=== PATIENT | female | born 1935 | race Caucasian/White ===

== ENCOUNTER 2022-10-17 13:47 | Inpatient (IN) | payer OTHER ==
[~2022-10-17] VITALS: Ht 157.5 cm; Wt 66.5 kg
[2022-10-17 14:00] VITALS: PULSE 118; RESP 30; O2SAT 99
[2022-10-17] MEDS ORDERED: MethylPREDNISolone SOD SUCC 125 MG/2 ML VIAL IVP ONE ×2 (14:00)
[2022-10-17] MEDS ORDERED: ALBUTEROL SULFATE 2.5 MG/0.5 ML 5 ML NEB SOLUTION NEB ONE (14:00)
[2022-10-17] MEDS ORDERED: NITROGLYCERIN 2% (1 GM=INCH) OINTMENT PACKET TP ONE (14:00)
[2022-10-17] MEDS ORDERED: ACETAMINOPHEN 1000 MG/ISO-OSM 100 ML IV ONE (14:00)
[2022-10-17] MEDS ORDERED: IPRATROPIUM BROMIDE 0.5 MG/2.5 ML NEB SOLUTION NEB ONE (14:00)
[2022-10-17] MEDS ORDERED: 0.9% SODIUM CHLORIDE 10 ML SYRINGE IVP PRN (14:00)
[2022-10-17 14:15] VITALS: PULSE 120; PULSE 126; RESP 24; RESP 29; O2SAT 95; O2SAT 99
[2022-10-17] MEDS ORDERED: PIPERACILLIN/TAZO 3.375 GM/D5W 50 ML IV ONE (14:15)
[2022-10-17] MEDS ORDERED: SODIUM CHLORIDE 0.9% 1,750 ML IV ONE (14:15)
[2022-10-17 14:17] LABS: HEMATOCRIT 29.9 % (36-46); HEMOGLOBIN 9.3 g/dL (12.0-16.0); MEAN CORPUSCULAR HEMOGLOBIN 25.6 pg (26.0-34.0); MEAN CORPUSCULAR HGB CONC 31.1 G/dL (31.0-37.0); MEAN CORPUSCULAR VOLUME 82 fL (80-100); PLATELET COUNT (AUTO) 246 K/uL (150-450); RED BLOOD CELL COUNT(AUTO) 3.64 MIL/uL (4.00-5.20); RED CELL DISTRIBUTION WIDTH 16.1 % (11.5-14.5)
[2022-10-17 14:28] LABS: ANION GAP 21 mmol/L (8-16); CALCIUM, TOTAL 8.8 mg/dL (8.8-10.5); CARBON DIOXIDE 17 mmol/L (22-29); CHLORIDE 94 mmol/L (98-107); CREATININE 2.54 mg/dL (0.60-1.30); GLOMERULAR FILTR. RATE CALC 18 mL/min (>60); GLUCOSE,RANDOM 190 mg/dL (70-110); SODIUM SERUM 132 mmol/L (136-145)
[2022-10-17 14:30] LABS: INR 1.2 (0.9-1.1); PROTHROMBIN TIME 12.2 SEC (9.4-11.6)
[2022-10-17 14:37] LABS: COVID AG,FIA SOURCE NASOPHARYNGEAL
[2022-10-17 14:43] LABS: ALANINE AMINOTRANSFERASE 20 U/L (12-78); ALBUMIN 3.1 g/dL (3.4-5.0); ALKALINE PHOSPHATASE 144 U/L (46-116); ASPARTATE AMINOTRANSFERASE 44 U/L (15-37); BILIRUBIN,TOTAL 0.7 mg/dL (0.1-1.0); CREATINE KINASE, TOTAL ONLY 42 U/L (26-192); TOTAL PROTEIN, SERUM 7.1 g/dL (6.4-8.2)
[2022-10-17] MEDS ORDERED: SODIUM CHLORIDE 0.9% 1,200 ML IV ONE (14:45)
[2022-10-17 14:52] LABS: BAND NEUTROPHILS % (MANUAL) 70 % (0-5); LYMPHOCYTES % (MANUAL) 16 % (22-44); MONOCYTES % (MANUAL) 1 % (2-9); SEGMENTED NEUTROPHILS % 13 % (40-70)
[2022-10-17 15:00] LABS: INFLUENZA TYPE A NEGATIVE FOR TYPE A (NEGATIVE); INFLUENZA TYPE B NEGATIVE FOR TYPE B (NEGATIVE)
[2022-10-17 15:25] VITALS: PULSE 100; RESP 20; O2SAT 100
[2022-10-17 16:12] LABS: ABG BASE EXCESS -11.4 mmol/L (-2.0-3.0); ABG CARBOXYHEMOGLOBIN 0.2 % (0.0-1.5); ABG HCO3 16.3 mmol/L (22.0-26.0); ABG METHEMOGLOBIN 0.6 % (0.0-1.5); ABG OXYGEN CONTENT 14.1 mL/dL (15.0-23.0); ABG OXYGEN SATURATION 99.4 % (95.0-98.0); ABG OXYHEMOGLOBIN 98.6 % (94.0-100.0); ABG PCO2 33 mmHg (35-45); ABG PH 7.285 (7.35-7.450); ABG TOTAL HEMOGLOBIN 9.6 G/dL (12.0-18.0); PO2, ARTERIAL BG 305.2 mmHg (71.0-79.0); SOURCE, BLOOD GAS ARTERIAL
[2022-10-17 16:13] LABS: ABG A-A DIFF O2 368.5 mmHg (10-20.0); O2 DEVICE,BLOOD GAS BIPAP (ROOM AIR); SITE, BLOOD GAS RT RADIAL
[2022-10-17 16:14] LABS: SPONTANEOUS VT, BG 526 ml
[2022-10-17 17:00] VITALS: PULSE 96; RESP 24; O2SAT 99
[2022-10-17] MEDS ORDERED: VANCOMYCIN 1GM/WATER(PEG/NADA) 200 ML IV ONE (17:45)
[2022-10-17] MEDS ORDERED: ACETAMINOPHEN 325 MG TABLET PO PRN (18:15)
[2022-10-17] MEDS ORDERED: ONDANSETRON HCL 4 MG/2 ML VIAL IVP PRN (18:15)
[2022-10-17 19:00] VITALS: PULSE 77; RESP 20; O2SAT 100
[2022-10-17] MEDS: DOCUSATE SODIUM 100 MG CAPSULE PO SCH (20:54)
[2022-10-17] MEDS: PIPERACILLIN SODIUM/TAZOBACTAM 2.25 GM in DEXTROSE 5%-WATER 50 ML IV SCH (21:12)
[2022-10-17] MEDS: HEPARIN SODIUM,PORCINE 5,000 UNITS/ML VIAL SQ SCH (23:49)
[2022-10-18] VITALS: BP 112/51; PULSE 72; RESP 20; TEMP 98.6
[2022-10-18] MEDS: PIPERACILLIN SODIUM/TAZOBACTAM 2.25 GM in DEXTROSE 5%-WATER 50 ML IV SCH ×3 (02:21→16:15)
[2022-10-18 04:00] VITALS: BP 113/53; PULSE 68; RESP 20; TEMP 98.8
[2022-10-18 06:02] LABS: BASOPHILS % (AUTO) 0.1 % (0.0-2.0); EOSINOPHILS % (AUTO) 0.1 % (1.0-6.0); HEMOGLOBIN 8.1 g/dL (12.0-16.0); LYMPHOCYTES # (AUTO) 0.5 K/uL (1.0-4.8); LYMPHOCYTES % (AUTO) 4.5 % (22.0-44.0); MEAN CORPUSCULAR HEMOGLOBIN 25.8 pg (26.0-34.0); MEAN CORPUSCULAR HGB CONC 31.2 G/dL (31.0-37.0); MEAN CORPUSCULAR VOLUME 83 fL (80-100); MONOCYTES # (AUTO) 0.8 K/uL (0.1-1.0); MONOCYTES % (AUTO) 6.8 % (2.0-9.0); NEUTROPHILS # (AUTO) 10.6 K/uL (1.8-7.7); PLATELET COUNT (AUTO) 211 K/uL (150-450); RED BLOOD CELL COUNT(AUTO) 3.15 MIL/uL (4.00-5.20)
[2022-10-18 06:08] LABS: NEUTROPHILS % (AUTO) 88.5 % (40.0-70.0)
[2022-10-18 06:10] LABS: CALCIUM, TOTAL 7.7 mg/dL (8.8-10.5); CREATININE 2.05 mg/dL (0.60-1.30); POTASSIUM 3.7 mmol/L (3.5-5.1)
[2022-10-18 08:00] VITALS: BP 112/55; PULSE 64; RESP 18; TEMP 98.6
[2022-10-18] MEDS: HEPARIN SODIUM,PORCINE 5,000 UNITS/ML VIAL SQ SCH ×2 (08:00→16:00)
[2022-10-18] MEDS: FAMOTIDINE 20 MG TABLET PO SCH (08:49)
[2022-10-18] MEDS: DOCUSATE SODIUM 100 MG CAPSULE PO SCH ×2 (08:49→20:52)
[2022-10-18 11:10] LABS: MAGNESIUM 1.9 mg/dL (1.80-2.40)
[2022-10-18 12:00] VITALS: BP 107/51; PULSE 66; RESP 18; TEMP 98.5
[2022-10-18] MEDS: FUROSEMIDE 20 MG/2 ML VIAL IVP SCH (13:03)
[2022-10-18 16:00] VITALS: BP 118/58; PULSE 77; RESP 20; TEMP 98.4
[2022-10-18 20:00] VITALS: BP 120/54; PULSE 72; RESP 18; TEMP 98.7
[2022-10-19] VITALS: BP 154/71; PULSE 77; RESP 22; TEMP 98.8
[2022-10-19] MEDS: HEPARIN SODIUM,PORCINE 5,000 UNITS/ML VIAL SQ SCH ×3 (00:10→17:21)
[2022-10-19] MEDS: PIPERACILLIN SODIUM/TAZOBACTAM 2.25 GM in DEXTROSE 5%-WATER 50 ML IV SCH ×3 (00:10→17:21)
[2022-10-19 04:00] VITALS: BP 132/88; PULSE 83; RESP 18; TEMP 98.5
[2022-10-19 08:00] VITALS: BP 141/70; PULSE 77; RESP 19; TEMP 98.8
[2022-10-19] MEDS ORDERED: VANCOMYCIN HCL 750 MG in DEXTROSE 5%-WATER 250 ML IV SCH (08:00)
[2022-10-19] MEDS: VANCOMYCIN 1GM/WATER(PEG/NADA) 200 ML IV SCH (08:03)
[2022-10-19] MEDS: FAMOTIDINE 20 MG TABLET PO SCH (08:04)
[2022-10-19] MEDS: DOCUSATE SODIUM 100 MG CAPSULE PO SCH ×2 (08:04→20:34)
[2022-10-19] MEDS: FUROSEMIDE 20 MG/2 ML VIAL IVP SCH (08:04)
[2022-10-19 08:55] LABS: CALCIUM, TOTAL 8.2 mg/dL (8.8-10.5); CREATININE 1.7 mg/dL (0.60-1.30); POTASSIUM 4.5 mmol/L (3.5-5.1)
[2022-10-19 12:00] VITALS: BP 136/76; PULSE 78; RESP 25; TEMP 98.8
[2022-10-19] MEDS: HYDROCODONE/ACETAMINOPHEN 5-325 MG TABLET PO PRN ×2 (12:56→20:34)
[2022-10-19 16:00] VITALS: BP 126/63; PULSE 75; RESP 17; TEMP 98.7
[2022-10-19 20:00] VITALS: BP 113/61; PULSE 88; RESP 18; TEMP 98.8
[2022-10-19] MEDS: DOXYCYCLINE HYCLATE 100 MG TABLET PO SCH (20:34)
[2022-10-19] MEDS: ETHYL ALCOHOL 62% ANTISEPTIC NASAL SANITIZER 0.6 ML AMPUL NASAL SCH (20:34)
[2022-10-20] VITALS: BP 133/61; PULSE 93; RESP 16; TEMP 98.2
[2022-10-20] MEDS ORDERED: SODIUM CHLORIDE 0.9% 250 ML IV ONE (00:21)
[2022-10-20] MEDS: HEPARIN SODIUM,PORCINE 5,000 UNITS/ML VIAL SQ SCH ×3 (00:27→16:45)
[2022-10-20] MEDS: PIPERACILLIN SODIUM/TAZOBACTAM 2.25 GM in DEXTROSE 5%-WATER 50 ML IV SCH ×3 (00:27→16:45)
[2022-10-20 04:00] VITALS: BP 137/66; PULSE 94; RESP 20; TEMP 97.6
[2022-10-20 06:42] LABS: BASOPHILS % (AUTO) 0.3 % (0.0-2.0); EOSINOPHILS % (AUTO) 0.2 % (1.0-6.0); HEMATOCRIT 31.4 % (36-46); HEMOGLOBIN 9.9 g/dL (12.0-16.0); LYMPHOCYTES # (AUTO) 2.3 K/uL (1.0-4.8); LYMPHOCYTES % (AUTO) 8.7 % (22.0-44.0); MEAN CORPUSCULAR HEMOGLOBIN 25.7 pg (26.0-34.0); MEAN CORPUSCULAR HGB CONC 31.7 G/dL (31.0-37.0); MEAN CORPUSCULAR VOLUME 81 fL (80-100); MONOCYTES # (AUTO) 1.5 K/uL (0.1-1.0); MONOCYTES % (AUTO) 5.7 % (2.0-9.0); NEUTROPHILS # (AUTO) 22.1 K/uL (1.8-7.7); NEUTROPHILS % (AUTO) 85.1 % (40.0-70.0); PLATELET COUNT (AUTO) 369 K/uL (150-450); RED BLOOD CELL COUNT(AUTO) 3.87 MIL/uL (4.00-5.20); RED CELL DISTRIBUTION WIDTH 16.4 % (11.5-14.5)
[2022-10-20 06:59] LABS: ANION GAP 13 mmol/L (8-16); CARBON DIOXIDE 21 mmol/L (22-29); CHLORIDE 99 mmol/L (98-107); CREATININE 1.96 mg/dL (0.60-1.30); GLOMERULAR FILTR. RATE CALC 24 mL/min (>60); GLUCOSE,RANDOM 96 mg/dL (70-110); POTASSIUM 4.3 mmol/L (3.5-5.1); SODIUM SERUM 133 mmol/L (136-145)
[2022-10-20 07:34] VITALS: BP 149/84; PULSE 99; RESP 16; TEMP 99.2
[2022-10-20] MEDS: FUROSEMIDE 20 MG/2 ML VIAL IVP SCH ×2 (09:00→09:39)
[2022-10-20] MEDS: ETHYL ALCOHOL 62% ANTISEPTIC NASAL SANITIZER 0.6 ML AMPUL NASAL SCH ×2 (09:39→20:43)
[2022-10-20] MEDS: DOXYCYCLINE HYCLATE 100 MG TABLET PO SCH ×2 (09:39→20:43)
[2022-10-20] MEDS: DOCUSATE SODIUM 100 MG CAPSULE PO SCH ×2 (09:39→20:43)
[2022-10-20] MEDS: FAMOTIDINE 20 MG TABLET PO SCH (09:39)
[2022-10-20 11:05] LABS: APPEARANCE,URINE CLEAR (CLEAR); BILIRUBIN,URINE NEGATIVE (NEGATIVE); GLUCOSE, URINE (UA) NEGATIVE (NEGATIVE); KETONES,URINE NEGATIVE (NEGATIVE); LEUKOCYTE ESTERASE ,URINE LARGE (NEGATIVE); NITRATE,URINE NEGATIVE (NEGATIVE); OCCULT BLOOD,URINE NEGATIVE (NEGATIVE); PH,URINE 5.5 (5.0-8.0); PROTEIN,URINE TRACE mg/dL (NEGATIVE); SPECIFIC GRAVITIY, URINE 1.014 (1.003-1.030); UROBILINOGEN,URINE <=1.0 mg/dL (<=1.0)
[2022-10-20 11:15] LABS: BACTERIA,URINE None Seen /HPF (None Seen); RBC,URINE None Seen /HPF (0-2); SQUAMOUS EPITHELIAL CELL,UR Few /LPF (None Seen)
[2022-10-20 12:00] VITALS: BP 137/76; PULSE 107; RESP 18; TEMP 98.4
[2022-10-20] MEDS ORDERED: DEXTROSE 50%-WATER 25 GM/50 ML SYRINGE IVP PRN (13:00)
[2022-10-20 13:15] LABS: GLUCOMETER DEV NAME(LOC) 5N.2C
[2022-10-20] MEDS ORDERED: SODIUM PHOSPHATE,MONO-DIBASIC 133 ML ENEMA PR ONE (13:30)
[2022-10-20 16:56] VITALS: BP 122/53; PULSE 98; RESP 17; TEMP 99
[2022-10-20] MEDS: INSULIN LISPRO 100 UNITS/ML SQ PRN (17:33)
[2022-10-20 18:46] LABS: GLUCOMETER DEV NAME(LOC) 5N.2C
[2022-10-20 20:00] VITALS: BP 117/49; PULSE 93; RESP 16; TEMP 98
[2022-10-21] VITALS (8 sets, daily range): BP systolic 114–140; BP diastolic 46–65; PULSE 83–111; RESP 16–20; TEMP 98–98.4; O2SAT 96–100
[2022-10-21] MEDS: PIPERACILLIN SODIUM/TAZOBACTAM 2.25 GM in DEXTROSE 5%-WATER 50 ML IV SCH ×4 (00:07→22:11)
[2022-10-21] MEDS: HEPARIN SODIUM,PORCINE 5,000 UNITS/ML VIAL SQ SCH ×4 (00:07→23:44)
[2022-10-21 06:27] LABS: GLUCOMETER DEV NAME(LOC) 5S.2C
[2022-10-21 06:40] LABS: CALCIUM, TOTAL 8.9 mg/dL (8.8-10.5); CREATININE 1.49 mg/dL (0.60-1.30); VANCOMYCIN,RANDOM 12.9 mcg/mL (25.0-50.0)
[2022-10-21] MEDS: DOCUSATE SODIUM 100 MG CAPSULE PO SCH ×2 (09:00→20:40)
[2022-10-21] MEDS: DOXYCYCLINE HYCLATE 100 MG TABLET PO SCH ×2 (09:03→20:40)
[2022-10-21] MEDS: FAMOTIDINE 20 MG TABLET PO SCH (09:03)
[2022-10-21] MEDS: ETHYL ALCOHOL 62% ANTISEPTIC NASAL SANITIZER 0.6 ML AMPUL NASAL SCH ×2 (09:03→20:40)
[2022-10-21] MEDS: FUROSEMIDE 20 MG/2 ML VIAL IVP SCH (09:03)
[2022-10-21] MEDS: VANCOMYCIN 1GM/WATER(PEG/NADA) 200 ML IV SCH (09:04)
[2022-10-21 12:52] LABS: GLUCOMETER DEV NAME(LOC) 5N.2C
[2022-10-21 12:57] LABS: BASOPHILS % (AUTO) 1.2 % (0.0-2.0); EOSINOPHILS % (AUTO) 1.8 % (1.0-6.0); HEMOGLOBIN 8.6 g/dL (12.0-16.0); LYMPHOCYTES % (AUTO) 12.5 % (22.0-44.0); MEAN CORPUSCULAR HEMOGLOBIN 25.8 pg (26.0-34.0); MEAN CORPUSCULAR VOLUME 81 fL (80-100); MONOCYTES # (AUTO) 1.2 K/uL (0.1-1.0); MONOCYTES % (AUTO) 7.7 % (2.0-9.0); NEUTROPHILS % (AUTO) 76.8 % (40.0-70.0); PLATELET COUNT (AUTO) 289 K/uL (150-450); RED BLOOD CELL COUNT(AUTO) 3.35 MIL/uL (4.00-5.20); RED CELL DISTRIBUTION WIDTH 16.6 % (11.5-14.5)
[2022-10-21 12:59] LABS: GLUCOMETER DEV NAME(LOC) 5N.2C
[2022-10-21] MEDS: IPRATROPIUM BROMIDE 0.5 MG/2.5 ML NEB SOLUTION NEB PRN (16:52)
[2022-10-21] MEDS: ALBUTEROL SULFATE 2.5 MG/0.5 ML NEB SOLUTION NEB PRN (16:53)
[2022-10-21] MEDS: HYDROCODONE/ACETAMINOPHEN 5-325 MG TABLET PO PRN (17:21)
[2022-10-21] MEDS: BENZONATATE 100 MG CAPSULE PO SCH ×2 (17:21→23:44)
[2022-10-21] MEDS: INSULIN LISPRO 100 UNITS/ML SQ PRN (20:43)
[2022-10-21] MEDS ORDERED: SODIUM CHLORIDE 0.9% 500 ML IV ONE (22:14)
[2022-10-21 22:27] LABS: GLUCOMETER DEV NAME(LOC) 5S.2C
[2022-10-21 22:27] LABS: GLUCOMETER DEV NAME(LOC) 5N.2C
[2022-10-22] VITALS (9 sets, daily range): BP systolic 121–142; BP diastolic 59–72; PULSE 75–96; RESP 16–20; TEMP 98–98.4; O2SAT 99–100
[2022-10-22] MEDS: PIPERACILLIN SODIUM/TAZOBACTAM 2.25 GM in DEXTROSE 5%-WATER 50 ML IV SCH ×4 (03:46→22:09)
[2022-10-22 06:24] LABS: GLUCOMETER DEV NAME(LOC) 5S.2C
[2022-10-22 07:04] LABS: CALCIUM, TOTAL 9.1 mg/dL (8.8-10.5); CREATININE 1.44 mg/dL (0.60-1.30); POTASSIUM 3.6 mmol/L (3.5-5.1)
[2022-10-22] MEDS: HEPARIN SODIUM,PORCINE 5,000 UNITS/ML VIAL SQ SCH ×2 (08:45→15:13)
[2022-10-22] MEDS: VANCOMYCIN HCL 500 MG in DEXTROSE 5%-WATER 100 ML IV SCH (08:45)
[2022-10-22] MEDS: DOXYCYCLINE HYCLATE 100 MG TABLET PO SCH ×2 (08:46→21:18)
[2022-10-22] MEDS: FUROSEMIDE 20 MG/2 ML VIAL IVP SCH (08:46)
[2022-10-22] MEDS: BENZONATATE 100 MG CAPSULE PO SCH ×2 (08:46→15:08)
[2022-10-22] MEDS: FAMOTIDINE 20 MG TABLET PO SCH (08:46)
[2022-10-22] MEDS: DOCUSATE SODIUM 100 MG CAPSULE PO SCH ×2 (09:00→21:00)
[2022-10-22] MEDS: ETHYL ALCOHOL 62% ANTISEPTIC NASAL SANITIZER 0.6 ML AMPUL NASAL SCH ×2 (09:07→21:19)
[2022-10-22 09:56] LABS: HEMATOCRIT 28.1 % (36-46); HEMOGLOBIN 8.8 g/dL (12.0-16.0); MEAN CORPUSCULAR HEMOGLOBIN 25.2 pg (26.0-34.0); MEAN CORPUSCULAR HGB CONC 31.4 G/dL (31.0-37.0); MEAN CORPUSCULAR VOLUME 80 fL (80-100); PLATELET COUNT (AUTO) 307 K/uL (150-450); RED CELL DISTRIBUTION WIDTH 16.4 % (11.5-14.5)
[2022-10-22 12:03] LABS: GLUCOMETER DEV NAME(LOC) 5S.2C
[2022-10-22 12:09] LABS: PLATELET MORPHOLOGY COMMENT LARGE PLTS PRESENT
[2022-10-22 12:10] LABS: PATHOLOGY REVIEW, DIFF YES
[2022-10-22 12:13] LABS: BAND NEUTROPHILS % (MANUAL) 6 % (0-5); EOSINOPHILS % (MANUAL) 3 % (1-6); LYMPHOCYTES % (MANUAL) 14 % (22-44); METAMYELOCYTES % 4 % (0-0); MONOCYTES % (MANUAL) 12 % (2-9); MYELOCYTES % 4 % (0-0); SEGMENTED NEUTROPHILS % 57 % (40-70)
[2022-10-22] MEDS: GuaiFENesin/D-METHORPHAN [SUGAR-FREE] 200-20MG/10 ML SYRUP UDCUP PO PRN ×2 (12:30→21:19)
[2022-10-22] MEDS: HYDROCODONE/ACETAMINOPHEN 5-325 MG TABLET PO PRN ×2 (15:13→22:16)
[2022-10-22] MEDS: ALBUTEROL SULFATE 2.5 MG/0.5 ML NEB SOLUTION NEB PRN (16:13)
[2022-10-22] MEDS: IPRATROPIUM BROMIDE 0.5 MG/2.5 ML NEB SOLUTION NEB PRN (16:13)
[2022-10-22 19:11] LABS: GLUCOMETER DEV NAME(LOC) 5N.2C
[2022-10-22 21:30] LABS: GLUCOMETER DEV NAME(LOC) 5N.2C
[2022-10-23] VITALS (7 sets, daily range): BP systolic 109–139; BP diastolic 51–65; PULSE 76–92; RESP 16–19; TEMP 97.6–98.4
[2022-10-23] MEDS: BENZONATATE 100 MG CAPSULE PO SCH ×3 (00:13→16:00)
[2022-10-23] MEDS: HEPARIN SODIUM,PORCINE 5,000 UNITS/ML VIAL SQ SCH ×3 (00:13→16:00)
[2022-10-23] MEDS: PIPERACILLIN SODIUM/TAZOBACTAM 2.25 GM in DEXTROSE 5%-WATER 50 ML IV SCH ×2 (04:00→09:47)
[2022-10-23 06:30] LABS: HEMATOCRIT 31.4 % (36-46); MEAN CORPUSCULAR HEMOGLOBIN 25.6 pg (26.0-34.0); MEAN CORPUSCULAR HGB CONC 31.9 G/dL (31.0-37.0); MEAN CORPUSCULAR VOLUME 80 fL (80-100); PLATELET COUNT (AUTO) 338 K/uL (150-450); RED CELL DISTRIBUTION WIDTH 16.5 % (11.5-14.5)
[2022-10-23 07:06] LABS: CALCIUM, TOTAL 9.8 mg/dL (8.8-10.5); CREATININE 1.64 mg/dL (0.60-1.30)
[2022-10-23] MEDS: DOXYCYCLINE HYCLATE 100 MG TABLET PO SCH ×2 (08:06→21:22)
[2022-10-23] MEDS: FAMOTIDINE 20 MG TABLET PO SCH (08:06)
[2022-10-23] MEDS: FUROSEMIDE 20 MG/2 ML VIAL IVP SCH (08:06)
[2022-10-23 08:13] LABS: BAND NEUTROPHILS % (MANUAL) 7 % (0-5); LYMPHOCYTES % (MANUAL) 26 % (22-44); METAMYELOCYTES % 4 % (0-0); MYELOCYTES % 1 % (0-0); SEGMENTED NEUTROPHILS % 62 % (40-70)
[2022-10-23] MEDS: ETHYL ALCOHOL 62% ANTISEPTIC NASAL SANITIZER 0.6 ML AMPUL NASAL SCH ×2 (08:25→21:22)
[2022-10-23] MEDS: VANCOMYCIN HCL 500 MG in DEXTROSE 5%-WATER 100 ML IV SCH (08:25)
[2022-10-23] MEDS: DOCUSATE SODIUM 100 MG CAPSULE PO SCH ×2 (09:00→21:00)
[2022-10-23] MEDS: HYDROCODONE/ACETAMINOPHEN 5-325 MG TABLET PO PRN (10:54)
[2022-10-23 11:41] LABS: GLUCOMETER DEV NAME(LOC) 5N.2C
[2022-10-23] MEDS ORDERED: *CLINICAL-MEROPENEM DOSING CLINICAL ONE (14:00)
[2022-10-23] MEDS: MEROPENEM 500 MG in SODIUM CHLORIDE 0.9% 50 ML IV SCH (15:54)
[2022-10-23 19:56] LABS: GLUCOMETER DEV NAME(LOC) 5S.2C
[2022-10-23 19:56] LABS: GLUCOMETER DEV NAME(LOC) 5S.2C
[2022-10-23 20:46] LABS: GLUCOMETER DEV NAME(LOC) 5N.2C
[2022-10-23] MEDS: INSULIN LISPRO 100 UNITS/ML SQ PRN (21:20)
[2022-10-23] MEDS: GuaiFENesin/D-METHORPHAN [SUGAR-FREE] 200-20MG/10 ML SYRUP UDCUP PO PRN (21:32)
[2022-10-24] MEDS: HEPARIN SODIUM,PORCINE 5,000 UNITS/ML VIAL SQ SCH ×4 (00:20→23:50)
[2022-10-24] MEDS: BENZONATATE 100 MG CAPSULE PO SCH ×4 (00:20→23:45)
[2022-10-24] MEDS: MEROPENEM 500 MG in SODIUM CHLORIDE 0.9% 50 ML IV SCH ×2 (02:22→16:01)
[2022-10-24 05:23] VITALS: BP 135/74; PULSE 96; RESP 18; TEMP 98.2
[2022-10-24 06:51] LABS: GLUCOMETER DEV NAME(LOC) 5S.2C
[2022-10-24 07:25] LABS: BASOPHILS % (AUTO) 0.5 % (0.0-2.0); EOSINOPHILS % (AUTO) 4.6 % (1.0-6.0); HEMATOCRIT 30.4 % (36-46); HEMOGLOBIN 9.6 g/dL (12.0-16.0); LYMPHOCYTES # (AUTO) 2.9 K/uL (1.0-4.8); MEAN CORPUSCULAR HEMOGLOBIN 25.3 pg (26.0-34.0); MEAN CORPUSCULAR HGB CONC 31.7 G/dL (31.0-37.0); MEAN CORPUSCULAR VOLUME 80 fL (80-100); NEUTROPHILS # (AUTO) 16.1 K/uL (1.8-7.7); NEUTROPHILS % (AUTO) 72.9 % (40.0-70.0); PLATELET COUNT (AUTO) 381 K/uL (150-450); RED BLOOD CELL COUNT(AUTO) 3.81 MIL/uL (4.00-5.20); RED CELL DISTRIBUTION WIDTH 16.9 % (11.5-14.5)
[2022-10-24 07:49] LABS: ALBUMIN 2.4 g/dL (3.4-5.0); BILIRUBIN,TOTAL 0.3 mg/dL (0.1-1.0); CALCIUM, TOTAL 10.3 mg/dL (8.8-10.5); CREATININE 1.67 mg/dL (0.60-1.30); POTASSIUM 4.3 mmol/L (3.5-5.1); TOTAL PROTEIN, SERUM 6.9 g/dL (6.4-8.2)
[2022-10-24 07:50] VITALS: BP 142/65; PULSE 95; RESP 19; TEMP 98.4
[2022-10-24] MEDS: VANCOMYCIN HCL 500 MG in DEXTROSE 5%-WATER 100 ML IV SCH (09:01)
[2022-10-24] MEDS: ETHYL ALCOHOL 62% ANTISEPTIC NASAL SANITIZER 0.6 ML AMPUL NASAL SCH ×2 (09:01→21:04)
[2022-10-24] MEDS: FUROSEMIDE 20 MG/2 ML VIAL IVP SCH (09:01)
[2022-10-24] MEDS: DOCUSATE SODIUM 100 MG CAPSULE PO SCH ×2 (09:01→21:00)
[2022-10-24] MEDS: DOXYCYCLINE HYCLATE 100 MG TABLET PO SCH ×2 (09:01→21:04)
[2022-10-24] MEDS: FAMOTIDINE 20 MG TABLET PO SCH (09:02)
[2022-10-24 11:13] VITALS: BP 156/70; PULSE 105; RESP 19; TEMP 98
[2022-10-24] MEDS: INSULIN LISPRO 100 UNITS/ML SQ PRN (12:04)
[2022-10-24 14:07] LABS: S PNEUMO SOURCE Urine; STREP PNEUMONIAE AG URINE Negative (Negative)
[2022-10-24 15:07] LABS: LEGIONELLA PNEUMO AG URINE Negative (Negative)
[2022-10-24 15:33] VITALS: BP 136/58; PULSE 104; RESP 18; TEMP 97.3
[2022-10-24 20:32] VITALS: BP 133/57; PULSE 97; RESP 18; TEMP 97.9
[2022-10-24 21:26] LABS: GLUCOMETER DEV NAME(LOC) 5S.2C
[2022-10-24 21:26] LABS: GLUCOMETER DEV NAME(LOC) 5S.2C
[2022-10-24 23:01] LABS: GLUCOMETER DEV NAME(LOC) 5S.1B
[2022-10-25] VITALS (9 sets, daily range): BP systolic 113–148; BP diastolic 52–72; PULSE 60–105; RESP 17–20; TEMP 97.5–98.1
[2022-10-25] MEDS: MEROPENEM 500 MG in SODIUM CHLORIDE 0.9% 50 ML IV SCH ×2 (03:35→14:31)
[2022-10-25 06:46] LABS: GLUCOMETER DEV NAME(LOC) 5N.2C
[2022-10-25 07:18] LABS: HEMATOCRIT 31.1 % (36-46); HEMOGLOBIN 9.8 g/dL (12.0-16.0); MEAN CORPUSCULAR HEMOGLOBIN 25.3 pg (26.0-34.0); MEAN CORPUSCULAR HGB CONC 31.7 G/dL (31.0-37.0); MEAN CORPUSCULAR VOLUME 80 fL (80-100); PLATELET COUNT (AUTO) 369 K/uL (150-450); RED BLOOD CELL COUNT(AUTO) 3.89 MIL/uL (4.00-5.20); RED CELL DISTRIBUTION WIDTH 17.1 % (11.5-14.5)
[2022-10-25 07:43] LABS: CALCIUM, TOTAL 10.3 mg/dL (8.8-10.5); CREATININE 1.72 mg/dL (0.60-1.30); POTASSIUM 4.3 mmol/L (3.5-5.1); VANCOMYCIN,RANDOM 23.6 mcg/mL (25.0-50.0)
[2022-10-25 08:45] LABS: BAND NEUTROPHILS % (MANUAL) 8 % (0-5); LYMPHOCYTES % (MANUAL) 23 % (22-44); METAMYELOCYTES % 2 % (0-0); MONOCYTES % (MANUAL) 4 % (2-9); MYELOCYTES % 3 % (0-0); SEGMENTED NEUTROPHILS % 60 % (40-70)
[2022-10-25] MEDS: DOCUSATE SODIUM 100 MG CAPSULE PO SCH ×2 (09:00→20:46)
[2022-10-25] MEDS: ETHYL ALCOHOL 62% ANTISEPTIC NASAL SANITIZER 0.6 ML AMPUL NASAL SCH ×2 (09:18→20:46)
[2022-10-25] MEDS: FUROSEMIDE 20 MG/2 ML VIAL IVP SCH (09:19)
[2022-10-25] MEDS: VANCOMYCIN HCL 500 MG in DEXTROSE 5%-WATER 100 ML IV SCH (09:19)
[2022-10-25] MEDS: HEPARIN SODIUM,PORCINE 5,000 UNITS/ML VIAL SQ SCH ×3 (09:19→23:49)
[2022-10-25] MEDS: BENZONATATE 100 MG CAPSULE PO SCH ×3 (09:19→23:50)
[2022-10-25] MEDS: DOXYCYCLINE HYCLATE 100 MG TABLET PO SCH ×2 (09:20→20:46)
[2022-10-25] MEDS: FAMOTIDINE 20 MG TABLET PO SCH (09:20)
[2022-10-25] MEDS: HYDROCODONE/ACETAMINOPHEN 5-325 MG TABLET PO PRN (15:13)
[2022-10-25 18:26] LABS: GLUCOMETER DEV NAME(LOC) 5N.2C
[2022-10-25 18:26] LABS: GLUCOMETER DEV NAME(LOC) 5S.1B
[2022-10-25 22:31] LABS: GLUCOMETER DEV NAME(LOC) 5S.1B
[2022-10-26] VITALS (8 sets, daily range): BP systolic 126–142; BP diastolic 53–62; PULSE 57–86; RESP 17–20; TEMP 97.7–98.7
[2022-10-26] MEDS: MEROPENEM 500 MG in SODIUM CHLORIDE 0.9% 50 ML IV SCH ×2 (02:05→13:56)
[2022-10-26] MEDS: HYDROCODONE/ACETAMINOPHEN 5-325 MG TABLET PO PRN ×2 (06:36→22:15)
[2022-10-26 07:54] LABS: HEMATOCRIT 30.5 % (36-46); HEMOGLOBIN 9.7 g/dL (12.0-16.0); MEAN CORPUSCULAR HEMOGLOBIN 24.8 pg (26.0-34.0); MEAN CORPUSCULAR HGB CONC 31.8 G/dL (31.0-37.0); MEAN CORPUSCULAR VOLUME 78 fL (80-100); PLATELET COUNT (AUTO) 404 K/uL (150-450); RED CELL DISTRIBUTION WIDTH 16.9 % (11.5-14.5)
[2022-10-26 08:13] LABS: ALBUMIN 2.5 g/dL (3.4-5.0); BILIRUBIN,TOTAL 0.3 mg/dL (0.1-1.0); CALCIUM, TOTAL 9.9 mg/dL (8.8-10.5); CREATININE 1.78 mg/dL (0.60-1.30); POTASSIUM 4.1 mmol/L (3.5-5.1); TOTAL PROTEIN, SERUM 6.7 g/dL (6.4-8.2)
[2022-10-26] MEDS: VANCOMYCIN HCL 500 MG in DEXTROSE 5%-WATER 100 ML IV SCH (08:17)
[2022-10-26] MEDS: HEPARIN SODIUM,PORCINE 5,000 UNITS/ML VIAL SQ SCH ×2 (08:18→17:09)
[2022-10-26] MEDS: BENZONATATE 100 MG CAPSULE PO SCH ×2 (08:18→17:09)
[2022-10-26] MEDS: FAMOTIDINE 20 MG TABLET PO SCH (08:19)
[2022-10-26] MEDS: ETHYL ALCOHOL 62% ANTISEPTIC NASAL SANITIZER 0.6 ML AMPUL NASAL SCH ×2 (08:19→21:00)
[2022-10-26] MEDS: FUROSEMIDE 20 MG/2 ML VIAL IVP SCH (08:19)
[2022-10-26] MEDS: DOCUSATE SODIUM 100 MG CAPSULE PO SCH ×2 (08:19→21:00)
[2022-10-26] MEDS: DOXYCYCLINE HYCLATE 100 MG TABLET PO SCH (08:20)
[2022-10-26] MEDS: GuaiFENesin/D-METHORPHAN [SUGAR-FREE] 200-20MG/10 ML SYRUP UDCUP PO PRN (08:20)
[2022-10-26 08:42] LABS: BAND NEUTROPHILS % (MANUAL) 4 % (0-5); LYMPHOCYTES % (MANUAL) 13 % (22-44); MONOCYTES % (MANUAL) 1 % (2-9); MYELOCYTES % 2 % (0-0); SEGMENTED NEUTROPHILS % 80 % (40-70)
[2022-10-26] MEDS: METOPROLOL SUCCINATE 25 MG ER TABLET PO SCH (09:00)
[2022-10-26 19:21] LABS: GLUCOMETER DEV NAME(LOC) 5N.2C
[2022-10-26 19:21] LABS: GLUCOMETER DEV NAME(LOC) 5S.1B
[2022-10-27] VITALS (8 sets, daily range): BP systolic 112–138; BP diastolic 51–61; PULSE 67–83; RESP 16–17; TEMP 97.8–98.2
[2022-10-27] MEDS: MEROPENEM 500 MG in SODIUM CHLORIDE 0.9% 50 ML IV SCH ×2 (04:00→13:28)
[2022-10-27 06:58] LABS: HEMATOCRIT 29.4 % (36-46); HEMOGLOBIN 9.4 g/dL (12.0-16.0); MEAN CORPUSCULAR HEMOGLOBIN 25.1 pg (26.0-34.0); MEAN CORPUSCULAR HGB CONC 31.9 G/dL (31.0-37.0); MEAN CORPUSCULAR VOLUME 78 fL (80-100); PLATELET COUNT (AUTO) 359 K/uL (150-450); RED BLOOD CELL COUNT(AUTO) 3.75 MIL/uL (4.00-5.20); RED CELL DISTRIBUTION WIDTH 16.9 % (11.5-14.5)
[2022-10-27 07:16] LABS: GLUCOMETER DEV NAME(LOC) 5S.1B
[2022-10-27 07:27] LABS: POTASSIUM 4.3 mmol/L (3.5-5.1)
[2022-10-27 07:30] LABS: CALCIUM, TOTAL 9.6 mg/dL (8.8-10.5); CREATININE 2.06 mg/dL (0.60-1.30); VANCOMYCIN,RANDOM 26.7 mcg/mL (25.0-50.0)
[2022-10-27] MEDS: VANCOMYCIN HCL 500 MG in DEXTROSE 5%-WATER 100 ML IV SCH (07:47)
[2022-10-27] MEDS ORDERED: VANCOMYCIN 1GM/WATER(PEG/NADA) 200 ML IV PRN (08:15)
[2022-10-27 08:33] LABS: BAND NEUTROPHILS % (MANUAL) 5 % (0-5); LYMPHOCYTES % (MANUAL) 8 % (22-44); MONOCYTES % (MANUAL) 1 % (2-9); SEGMENTED NEUTROPHILS % 86 % (40-70)
[2022-10-27] MEDS: DOCUSATE SODIUM 100 MG CAPSULE PO SCH ×2 (09:19→20:56)
[2022-10-27] MEDS: BENZONATATE 100 MG CAPSULE PO SCH ×3 (09:19→16:28)
[2022-10-27] MEDS: HEPARIN SODIUM,PORCINE 5,000 UNITS/ML VIAL SQ SCH ×3 (09:19→16:28)
[2022-10-27] MEDS: FAMOTIDINE 20 MG TABLET PO SCH (09:19)
[2022-10-27] MEDS: METOPROLOL SUCCINATE 25 MG ER TABLET PO SCH (09:20)
[2022-10-27] MEDS: FUROSEMIDE 20 MG TABLET PO SCH (09:20)
[2022-10-27] MEDS: ETHYL ALCOHOL 62% ANTISEPTIC NASAL SANITIZER 0.6 ML AMPUL NASAL SCH ×2 (09:22→20:56)
[2022-10-27 11:31] LABS: GLUCOMETER DEV NAME(LOC) 5S.1B
[2022-10-27] MEDS ORDERED: SODIUM CHLORIDE 0.9% 500 ML IV ONE (13:26)
[2022-10-27] MEDS: HYDROCODONE/ACETAMINOPHEN 5-325 MG TABLET PO PRN (16:27)
[2022-10-28] MEDS: HEPARIN SODIUM,PORCINE 5,000 UNITS/ML VIAL SQ SCH ×4 (00:50→23:14)
[2022-10-28] MEDS: MEROPENEM 500 MG in SODIUM CHLORIDE 0.9% 50 ML IV SCH ×2 (00:50→14:18)
[2022-10-28 00:51] LABS: GLUCOMETER DEV NAME(LOC) 5N.2C
[2022-10-28] MEDS: BENZONATATE 100 MG CAPSULE PO SCH ×4 (00:51→23:13)
[2022-10-28 01:10] VITALS: BP 120/68; PULSE 74; RESP 16; TEMP 97.9
[2022-10-28 05:20] VITALS: BP 117/49; PULSE 69; RESP 16; TEMP 98
[2022-10-28] MEDS: FUROSEMIDE 20 MG TABLET PO SCH (08:19)
[2022-10-28] MEDS: FAMOTIDINE 20 MG TABLET PO SCH (08:19)
[2022-10-28] MEDS: DOCUSATE SODIUM 100 MG CAPSULE PO SCH ×2 (08:19→21:00)
[2022-10-28] MEDS: METOPROLOL SUCCINATE 25 MG ER TABLET PO SCH (08:20)
[2022-10-28] MEDS: ETHYL ALCOHOL 62% ANTISEPTIC NASAL SANITIZER 0.6 ML AMPUL NASAL SCH ×2 (08:20→21:17)
[2022-10-28 08:21] VITALS: BP 135/56; PULSE 83; RESP 18; TEMP 97.9
[2022-10-28 11:15] VITALS: BP 143/59; PULSE 77; RESP 18; TEMP 98.1
[2022-10-28] MEDS: HYDROCODONE/ACETAMINOPHEN 5-325 MG TABLET PO PRN ×2 (12:58→21:17)
[2022-10-28 15:44] VITALS: BP 129/61; PULSE 72; RESP 19; TEMP 98
[2022-10-28 18:41] LABS: GLUCOMETER DEV NAME(LOC) 5N.2C
[2022-10-28 18:46] LABS: GLUCOMETER DEV NAME(LOC) 5S.1B
[2022-10-28 18:46] LABS: GLUCOMETER DEV NAME(LOC) 5S.1B
[2022-10-28 20:01] LABS: HEMATOCRIT 29.7 % (36-46); HEMOGLOBIN 9.5 g/dL (12.0-16.0); MEAN CORPUSCULAR HEMOGLOBIN 25.3 pg (26.0-34.0); MEAN CORPUSCULAR HGB CONC 32.1 G/dL (31.0-37.0); MEAN CORPUSCULAR VOLUME 79 fL (80-100); PLATELET COUNT (AUTO) 361 K/uL (150-450); RED BLOOD CELL COUNT(AUTO) 3.77 MIL/uL (4.00-5.20); RED CELL DISTRIBUTION WIDTH 17.4 % (11.5-14.5)
[2022-10-28 20:07] LABS: CALCIUM, TOTAL 9.4 mg/dL (8.8-10.5); CREATININE 2.07 mg/dL (0.60-1.30); POTASSIUM 4.3 mmol/L (3.5-5.1)
[2022-10-28 20:53] LABS: BAND NEUTROPHILS % (MANUAL) 6 % (0-5); LYMPHOCYTES % (MANUAL) 18 % (22-44); METAMYELOCYTES % 1 % (0-0); MONOCYTES % (MANUAL) 3 % (2-9); MYELOCYTES % 1 % (0-0); SEGMENTED NEUTROPHILS % 71 % (40-70)
[2022-10-28 21:16] VITALS: BP 110/66; PULSE 74; RESP 18; TEMP 97.5
[2022-10-29] VITALS: BP 117/47; PULSE 72; RESP 19; TEMP 97.5
[2022-10-29] MEDS: MEROPENEM 500 MG in SODIUM CHLORIDE 0.9% 50 ML IV SCH ×2 (02:05→14:25)
[2022-10-29 04:06] LABS: GLUCOMETER DEV NAME(LOC) 5S.1B
[2022-10-29 04:48] VITALS: BP 118/59; PULSE 70; RESP 20; TEMP 97.8
[2022-10-29 07:43] VITALS: BP 142/57; PULSE 73; RESP 19; TEMP 97.9
[2022-10-29] MEDS: FUROSEMIDE 20 MG TABLET PO SCH (08:24)
[2022-10-29] MEDS: ETHYL ALCOHOL 62% ANTISEPTIC NASAL SANITIZER 0.6 ML AMPUL NASAL SCH ×2 (08:24→20:27)
[2022-10-29] MEDS: DOCUSATE SODIUM 100 MG CAPSULE PO SCH ×2 (08:24→20:27)
[2022-10-29] MEDS: BENZONATATE 100 MG CAPSULE PO SCH ×3 (08:24→23:38)
[2022-10-29] MEDS: METOPROLOL SUCCINATE 25 MG ER TABLET PO SCH (08:24)
[2022-10-29] MEDS: FAMOTIDINE 20 MG TABLET PO SCH (08:24)
[2022-10-29] MEDS: HEPARIN SODIUM,PORCINE 5,000 UNITS/ML VIAL SQ SCH ×3 (08:25→23:51)
[2022-10-29 10:17] LABS: BASOPHILS % (AUTO) 1.3 % (0.0-2.0); EOSINOPHILS % (AUTO) 1.9 % (1.0-6.0); HEMATOCRIT 30.9 % (36-46); HEMOGLOBIN 9.9 g/dL (12.0-16.0); LYMPHOCYTES # (AUTO) 2.3 K/uL (1.0-4.8); LYMPHOCYTES % (AUTO) 17.3 % (22.0-44.0); MEAN CORPUSCULAR HEMOGLOBIN 25.2 pg (26.0-34.0); MEAN CORPUSCULAR HGB CONC 31.9 G/dL (31.0-37.0); MEAN CORPUSCULAR VOLUME 79 fL (80-100); MONOCYTES # (AUTO) 1.3 K/uL (0.1-1.0); MONOCYTES % (AUTO) 9.6 % (2.0-9.0); NEUTROPHILS # (AUTO) 9.2 K/uL (1.8-7.7); NEUTROPHILS % (AUTO) 69.9 % (40.0-70.0); PLATELET COUNT (AUTO) 345 K/uL (150-450); RED BLOOD CELL COUNT(AUTO) 3.91 MIL/uL (4.00-5.20); RED CELL DISTRIBUTION WIDTH 17.4 % (11.5-14.5)
[2022-10-29 10:37] LABS: POTASSIUM 4.6 mmol/L (3.5-5.1)
[2022-10-29 10:39] LABS: CALCIUM, TOTAL 9.5 mg/dL (8.8-10.5); CREATININE 1.83 mg/dL (0.60-1.30); VANCOMYCIN,RANDOM 21.7 mcg/mL (25.0-50.0)
[2022-10-29 10:45] VITALS: BP 122/70; PULSE 52; RESP 20; TEMP 98.2
[2022-10-29 11:06] LABS: GLUCOMETER DEV NAME(LOC) 5S.1B
[2022-10-29 12:21] LABS: CHOL/HDL RATIO 4.1 (3.9-5.7)
[2022-10-29] MEDS ORDERED: SODIUM CHLORIDE 0.9% 500 ML IV ONE (13:49)
[2022-10-29 15:24] VITALS: BP 131/59; PULSE 67; RESP 20; TEMP 98.1
[2022-10-29 19:40] VITALS: BP 134/56; PULSE 53; RESP 18; TEMP 98.1
[2022-10-29 20:21] LABS: GLUCOMETER DEV NAME(LOC) 4E.2
[2022-10-29] MEDS: ATORVASTATIN CALCIUM 20 MG TABLET PO SCH (20:27)
[2022-10-30 00:26] LABS: GLUCOMETER DEV NAME(LOC) 6N.1
[2022-10-30] MEDS: MEROPENEM 500 MG in SODIUM CHLORIDE 0.9% 50 ML IV SCH ×2 (01:50→15:52)
[2022-10-30 04:42] VITALS: BP 118/49; PULSE 65; RESP 18; TEMP 97.8
[2022-10-30 06:21] LABS: CALCIUM, TOTAL 9.1 mg/dL (8.8-10.5); CREATININE 1.78 mg/dL (0.60-1.30); POTASSIUM 4.8 mmol/L (3.5-5.1); VANCOMYCIN,RANDOM 20.1 mcg/mL (25.0-50.0)
[2022-10-30 06:26] LABS: GLUCOMETER DEV NAME(LOC) 6N.2B
[2022-10-30 07:22] VITALS: BP 139/57; PULSE 71; RESP 20; TEMP 98.6
[2022-10-30] MEDS: ETHYL ALCOHOL 62% ANTISEPTIC NASAL SANITIZER 0.6 ML AMPUL NASAL SCH ×2 (08:19→21:06)
[2022-10-30] MEDS: METOPROLOL SUCCINATE 25 MG ER TABLET PO SCH (08:20)
[2022-10-30] MEDS: FUROSEMIDE 20 MG TABLET PO SCH (08:20)
[2022-10-30] MEDS: BENZONATATE 100 MG CAPSULE PO SCH ×2 (08:20→16:32)
[2022-10-30] MEDS: DOCUSATE SODIUM 100 MG CAPSULE PO SCH ×3 (08:20→21:06)
[2022-10-30] MEDS: FAMOTIDINE 20 MG TABLET PO SCH (08:20)
[2022-10-30] MEDS: HEPARIN SODIUM,PORCINE 5,000 UNITS/ML VIAL SQ SCH ×2 (08:21→16:32)
[2022-10-30 15:01] LABS: GLUCOMETER DEV NAME(LOC) 6N.2B
[2022-10-30 15:29] VITALS: BP 133/48; PULSE 55; RESP 20; TEMP 97.7
[2022-10-30] MEDS ORDERED: VANCOMYCIN HCL 750 MG in DEXTROSE 5%-WATER 250 ML IV ONE (16:00)
[2022-10-30 19:48] VITALS: BP 129/54; PULSE 69; RESP 18; TEMP 98.3
[2022-10-30 20:35] LABS: GLUCOMETER DEV NAME(LOC) 4E.2
[2022-10-30] MEDS: ATORVASTATIN CALCIUM 20 MG TABLET PO SCH (21:06)
[2022-10-31] MEDS: HEPARIN SODIUM,PORCINE 5,000 UNITS/ML VIAL SQ SCH ×3 (00:35→16:21)
[2022-10-31] MEDS: BENZONATATE 100 MG CAPSULE PO SCH ×3 (00:35→16:20)
[2022-10-31] MEDS: MEROPENEM 500 MG in SODIUM CHLORIDE 0.9% 50 ML IV SCH ×2 (02:07→15:22)
[2022-10-31 05:17] VITALS: BP 127/83; PULSE 73; RESP 18; TEMP 97.4
[2022-10-31 06:11] LABS: GLUCOMETER DEV NAME(LOC) 4E.2
[2022-10-31 07:51] LABS: CALCIUM, TOTAL 9.1 mg/dL (8.8-10.5); CREATININE 1.47 mg/dL (0.60-1.30); POTASSIUM 4.9 mmol/L (3.5-5.1)
[2022-10-31 08:13] VITALS: BP 131/56; PULSE 73; RESP 18; TEMP 97.9
[2022-10-31] MEDS: FAMOTIDINE 20 MG TABLET PO SCH (08:21)
[2022-10-31] MEDS: DOCUSATE SODIUM 100 MG CAPSULE PO SCH ×2 (08:21→21:00)
[2022-10-31] MEDS: ETHYL ALCOHOL 62% ANTISEPTIC NASAL SANITIZER 0.6 ML AMPUL NASAL SCH ×3 (08:22→21:04)
[2022-10-31] MEDS: FUROSEMIDE 20 MG TABLET PO SCH (08:22)
[2022-10-31] MEDS: METOPROLOL SUCCINATE 25 MG ER TABLET PO SCH (10:52)
[2022-10-31] MEDS: INSULIN LISPRO 100 UNITS/ML SQ PRN (12:40)
[2022-10-31 14:46] LABS: GLUCOMETER DEV NAME(LOC) 6N.2B
[2022-10-31 14:46] LABS: GLUCOMETER DEV NAME(LOC) 6N.2B
[2022-10-31 16:00] VITALS: BP 132/65; PULSE 70; RESP 19; TEMP 97.5
[2022-10-31 18:41] LABS: GLUCOMETER DEV NAME(LOC) 4E.2
[2022-10-31 19:47] VITALS: BP 121/58; PULSE 78; RESP 18; TEMP 97.8
[2022-10-31] MEDS: ATORVASTATIN CALCIUM 20 MG TABLET PO SCH (21:04)
[2022-11-01] MEDS: BENZONATATE 100 MG CAPSULE PO SCH ×4 (00:42→23:56)
[2022-11-01] MEDS: HEPARIN SODIUM,PORCINE 5,000 UNITS/ML VIAL SQ SCH ×4 (00:43→23:56)
[2022-11-01] MEDS: MEROPENEM 500 MG in SODIUM CHLORIDE 0.9% 50 ML IV SCH ×2 (01:18→16:40)
[2022-11-01 02:31] LABS: GLUCOMETER DEV NAME(LOC) 6N.2B
[2022-11-01 05:05] VITALS: BP 115/44; PULSE 80; RESP 18; TEMP 97.8
[2022-11-01 08:01] VITALS: BP 123/53; PULSE 76; RESP 20; TEMP 98.7
[2022-11-01 08:04] LABS: CALCIUM, TOTAL 9.4 mg/dL (8.8-10.5); CREATININE 1.58 mg/dL (0.60-1.30)
[2022-11-01 08:09] LABS: POTASSIUM 6.4 mmol/L (3.5-5.1)
[2022-11-01] MEDS: ETHYL ALCOHOL 62% ANTISEPTIC NASAL SANITIZER 0.6 ML AMPUL NASAL SCH ×3 (09:00→21:00)
[2022-11-01] MEDS: DOCUSATE SODIUM 100 MG CAPSULE PO SCH ×2 (09:00→20:33)
[2022-11-01] MEDS: FUROSEMIDE 20 MG TABLET PO SCH (09:03)
[2022-11-01] MEDS: METOPROLOL SUCCINATE 25 MG ER TABLET PO SCH (09:03)
[2022-11-01] MEDS: FAMOTIDINE 20 MG TABLET PO SCH (09:05)
[2022-11-01 12:31] LABS: GLUCOMETER DEV NAME(LOC) 6N.2B
[2022-11-01] MEDS ORDERED: SODIUM ZIRCONIUM CYCLOSILICATE 5 GM POWDER PACKET PO ONE (12:45)
[2022-11-01] MEDS ORDERED: VANCOMYCIN HCL 750 MG in DEXTROSE 5%-WATER 250 ML IV ONE (13:00)
[2022-11-01 14:52] LABS: BASOPHILS % (AUTO) 1.5 % (0.0-2.0); EOSINOPHILS % (AUTO) 2.5 % (1.0-6.0); HEMATOCRIT 30.2 % (36-46); HEMOGLOBIN 9.6 g/dL (12.0-16.0); LYMPHOCYTES # (AUTO) 1.9 K/uL (1.0-4.8); LYMPHOCYTES % (AUTO) 23.8 % (22.0-44.0); MEAN CORPUSCULAR HEMOGLOBIN 25.5 pg (26.0-34.0); MEAN CORPUSCULAR HGB CONC 31.8 G/dL (31.0-37.0); MEAN CORPUSCULAR VOLUME 80 fL (80-100); MONOCYTES % (AUTO) 12.5 % (2.0-9.0); NEUTROPHILS # (AUTO) 4.7 K/uL (1.8-7.7); NEUTROPHILS % (AUTO) 59.7 % (40.0-70.0); PLATELET COUNT (AUTO) 292 K/uL (150-450); RED BLOOD CELL COUNT(AUTO) 3.78 MIL/uL (4.00-5.20); RED CELL DISTRIBUTION WIDTH 17.5 % (11.5-14.5)
[2022-11-01 15:59] VITALS: BP 102/70; PULSE 80; RESP 18; TEMP 98.1
[2022-11-01 19:37] VITALS: BP 115/54; PULSE 80; RESP 18; TEMP 98.5
[2022-11-01] MEDS: ATORVASTATIN CALCIUM 20 MG TABLET PO SCH (20:33)
[2022-11-01 20:50] LABS: GLUCOMETER DEV NAME(LOC) 6S.2
[2022-11-02] MEDS: MEROPENEM 500 MG in SODIUM CHLORIDE 0.9% 50 ML IV SCH ×2 (02:05→13:08)
[2022-11-02 05:21] LABS: GLUCOMETER DEV NAME(LOC) 4E.2
[2022-11-02 05:21] LABS: GLUCOMETER DEV NAME(LOC) 6N.2B
[2022-11-02 06:11] LABS: GLUCOMETER DEV NAME(LOC) 6S.2
[2022-11-02 06:22] VITALS: BP 134/58; PULSE 71; RESP 18; TEMP 99.4
[2022-11-02 07:52] LABS: ALBUMIN 2.7 g/dL (3.4-5.0); BILIRUBIN,TOTAL 0.5 mg/dL (0.1-1.0); CALCIUM, TOTAL 8.9 mg/dL (8.8-10.5); CREATININE 1.26 mg/dL (0.60-1.30); POTASSIUM 4.5 mmol/L (3.5-5.1); TOTAL PROTEIN, SERUM 6.8 g/dL (6.4-8.2)
[2022-11-02 08:00] VITALS: BP 114/46; PULSE 105; RESP 18; TEMP 97.9
[2022-11-02] MEDS: FUROSEMIDE 20 MG TABLET PO SCH (08:09)
[2022-11-02] MEDS: METOPROLOL SUCCINATE 25 MG ER TABLET PO SCH (08:09)
[2022-11-02] MEDS: BENZONATATE 100 MG CAPSULE PO SCH ×3 (08:09→23:20)
[2022-11-02] MEDS: HEPARIN SODIUM,PORCINE 5,000 UNITS/ML VIAL SQ SCH ×3 (08:09→23:20)
[2022-11-02] MEDS: FAMOTIDINE 20 MG TABLET PO SCH (08:09)
[2022-11-02] MEDS: DOCUSATE SODIUM 100 MG CAPSULE PO SCH ×2 (08:10→20:08)
[2022-11-02] MEDS: ETHYL ALCOHOL 62% ANTISEPTIC NASAL SANITIZER 0.6 ML AMPUL NASAL SCH ×2 (08:10→20:08)
[2022-11-02 13:26] LABS: BASOPHILS % (AUTO) 0.5 % (0.0-2.0); EOSINOPHILS % (AUTO) 4.3 % (1.0-6.0); HEMOGLOBIN 9.5 g/dL (12.0-16.0); LYMPHOCYTES # (AUTO) 1.5 K/uL (1.0-4.8); LYMPHOCYTES % (AUTO) 22.9 % (22.0-44.0); MEAN CORPUSCULAR HEMOGLOBIN 25.5 pg (26.0-34.0); MEAN CORPUSCULAR HGB CONC 31.7 G/dL (31.0-37.0); MEAN CORPUSCULAR VOLUME 80 fL (80-100); MONOCYTES # (AUTO) 0.8 K/uL (0.1-1.0); MONOCYTES % (AUTO) 12.3 % (2.0-9.0); PLATELET COUNT (AUTO) 297 K/uL (150-450); RED BLOOD CELL COUNT(AUTO) 3.74 MIL/uL (4.00-5.20); RED CELL DISTRIBUTION WIDTH 17.6 % (11.5-14.5)
[2022-11-02 13:57] LABS: GLUCOMETER DEV NAME(LOC) 6N.2B
[2022-11-02] MEDS: HYDROCODONE/ACETAMINOPHEN 5-325 MG TABLET PO PRN ×2 (16:21→23:20)
[2022-11-02 19:30] VITALS: BP 121/47; PULSE 69; RESP 18; TEMP 98
[2022-11-02] MEDS: ATORVASTATIN CALCIUM 20 MG TABLET PO SCH (20:08)
[2022-11-02 21:11] LABS: GLUCOMETER DEV NAME(LOC) 6N.1
[2022-11-02 21:11] LABS: GLUCOMETER DEV NAME(LOC) 6N.1
[2022-11-03] MEDS: MEROPENEM 500 MG in SODIUM CHLORIDE 0.9% 50 ML IV SCH ×2 (01:19→14:23)
[2022-11-03] MEDS ORDERED: SODIUM CHLORIDE 0.9% 500 ML IV ONE (01:22)
[2022-11-03 04:15] VITALS: BP 128/51; PULSE 73; RESP 18; TEMP 97.7
[2022-11-03 06:41] LABS: GLUCOMETER DEV NAME(LOC) 6N.2B
[2022-11-03 08:00] VITALS: BP 120/55; PULSE 78; RESP 20; TEMP 97.8
[2022-11-03] MEDS ORDERED: VANCOMYCIN HCL 750 MG in DEXTROSE 5%-WATER 250 ML IV SCH (08:00)
[2022-11-03] MEDS: DOCUSATE SODIUM 100 MG CAPSULE PO SCH ×2 (08:32→21:00)
[2022-11-03] MEDS: METOPROLOL SUCCINATE 25 MG ER TABLET PO SCH (08:32)
[2022-11-03] MEDS: HEPARIN SODIUM,PORCINE 5,000 UNITS/ML VIAL SQ SCH ×3 (08:32→23:39)
[2022-11-03] MEDS: FUROSEMIDE 20 MG TABLET PO SCH (08:33)
[2022-11-03] MEDS: FAMOTIDINE 20 MG TABLET PO SCH (08:33)
[2022-11-03] MEDS: BENZONATATE 100 MG CAPSULE PO SCH ×3 (08:33→23:39)
[2022-11-03] MEDS: ETHYL ALCOHOL 62% ANTISEPTIC NASAL SANITIZER 0.6 ML AMPUL NASAL SCH ×2 (09:37→20:28)
[2022-11-03] MEDS: HYDROCODONE/ACETAMINOPHEN 5-325 MG TABLET PO PRN (10:40)
[2022-11-03] MEDS: GuaiFENesin/D-METHORPHAN [SUGAR-FREE] 200-20MG/10 ML SYRUP UDCUP PO PRN (14:23)
[2022-11-03 15:06] LABS: GLUCOMETER DEV NAME(LOC) 6N.1
[2022-11-03 15:56] LABS: CALCIUM, TOTAL 9.1 mg/dL (8.8-10.5); CREATININE 1.39 mg/dL (0.60-1.30); POTASSIUM 5.1 mmol/L (3.5-5.1)
[2022-11-03 16:11] LABS: VANCOMYCIN,RANDOM 28.9 mcg/mL (25.0-50.0)
[2022-11-03 16:40] VITALS: BP 118/68; PULSE 85; RESP 20; TEMP 98
[2022-11-03 18:16] LABS: GLUCOMETER DEV NAME(LOC) 6S.2
[2022-11-03] MEDS: ATORVASTATIN CALCIUM 20 MG TABLET PO SCH (20:28)
[2022-11-03 20:30] VITALS: BP 124/75; PULSE 78; RESP 20; TEMP 97.6
[2022-11-04 02:36] LABS: GLUCOMETER DEV NAME(LOC) 6S.2
[2022-11-04] MEDS: MEROPENEM 500 MG in SODIUM CHLORIDE 0.9% 50 ML IV SCH ×2 (05:17→13:28)
[2022-11-04 05:19] VITALS: BP 133/63; PULSE 87; RESP 20; TEMP 97.9
[2022-11-04 08:04] VITALS: BP 129/65; PULSE 90; RESP 19; TEMP 97.8
[2022-11-04] MEDS: VANCOMYCIN HCL 500 MG in DEXTROSE 5%-WATER 100 ML IV SCH (08:07)
[2022-11-04] MEDS: METOPROLOL SUCCINATE 25 MG ER TABLET PO SCH (08:07)
[2022-11-04] MEDS: BENZONATATE 100 MG CAPSULE PO SCH ×2 (08:07→16:23)
[2022-11-04] MEDS: ETHYL ALCOHOL 62% ANTISEPTIC NASAL SANITIZER 0.6 ML AMPUL NASAL SCH ×2 (08:07→20:31)
[2022-11-04] MEDS: HEPARIN SODIUM,PORCINE 5,000 UNITS/ML VIAL SQ SCH ×2 (08:08→16:23)
[2022-11-04] MEDS: FUROSEMIDE 20 MG TABLET PO SCH (08:08)
[2022-11-04] MEDS: DOCUSATE SODIUM 100 MG CAPSULE PO SCH ×2 (08:08→20:33)
[2022-11-04] MEDS: FAMOTIDINE 20 MG TABLET PO SCH (08:09)
[2022-11-04 08:50] LABS: CALCIUM, TOTAL 9.7 mg/dL (8.8-10.5); CREATININE 1.5 mg/dL (0.60-1.30); POTASSIUM 5.5 mmol/L (3.5-5.1)
[2022-11-04] MEDS ORDERED: SODIUM ZIRCONIUM CYCLOSILICATE 5 GM POWDER PACKET PO ONE (12:15)
[2022-11-04 13:41] LABS: GLUCOMETER DEV NAME(LOC) 6N.2B
[2022-11-04 13:41] LABS: GLUCOMETER DEV NAME(LOC) 4E.2
[2022-11-04 16:03] VITALS: BP 134/51; PULSE 83; RESP 19; TEMP 97.8
[2022-11-04 19:12] VITALS: BP 125/50; PULSE 82; RESP 20; TEMP 98.1
[2022-11-04] MEDS: ATORVASTATIN CALCIUM 20 MG TABLET PO SCH (20:31)
[2022-11-04] MEDS: HYDROCODONE/ACETAMINOPHEN 5-325 MG TABLET PO PRN (20:35)
[2022-11-05] MEDS: BENZONATATE 100 MG CAPSULE PO SCH ×4 (00:07→23:48)
[2022-11-05] MEDS: HEPARIN SODIUM,PORCINE 5,000 UNITS/ML VIAL SQ SCH ×4 (00:12→23:48)
[2022-11-05] MEDS: MEROPENEM 500 MG in SODIUM CHLORIDE 0.9% 50 ML IV SCH ×2 (01:26→13:23)
[2022-11-05 04:10] VITALS: BP 133/58; PULSE 80; RESP 20; TEMP 97.7
[2022-11-05 07:49] LABS: CALCIUM, TOTAL 9.8 mg/dL (8.8-10.5); CREATININE 1.38 mg/dL (0.60-1.30); MAGNESIUM 2.3 mg/dL (1.80-2.40); PHOSPHORUS 3.6 mg/dL (2.5-4.9); POTASSIUM 4.5 mmol/L (3.5-5.1); VANCOMYCIN,RANDOM 25.9 mcg/mL (25.0-50.0)
[2022-11-05 08:26] LABS: GLUCOMETER DEV NAME(LOC) 4E.2
[2022-11-05 08:26] LABS: GLUCOMETER DEV NAME(LOC) 4E.2
[2022-11-05 08:40] VITALS: BP 157/72; PULSE 81; RESP 18; TEMP 97.7
[2022-11-05] MEDS: VANCOMYCIN HCL 500 MG in DEXTROSE 5%-WATER 100 ML IV SCH (09:26)
[2022-11-05] MEDS: ETHYL ALCOHOL 62% ANTISEPTIC NASAL SANITIZER 0.6 ML AMPUL NASAL SCH ×2 (09:26→20:27)
[2022-11-05] MEDS: DOCUSATE SODIUM 100 MG CAPSULE PO SCH ×2 (09:27→20:27)
[2022-11-05] MEDS: METOPROLOL SUCCINATE 25 MG ER TABLET PO SCH (09:27)
[2022-11-05] MEDS: FAMOTIDINE 20 MG TABLET PO SCH (09:27)
[2022-11-05] MEDS: FUROSEMIDE 20 MG TABLET PO SCH (09:27)
[2022-11-05 17:26] LABS: GLUCOMETER DEV NAME(LOC) 6N.2B
[2022-11-05] MEDS: HYDROCODONE/ACETAMINOPHEN 5-325 MG TABLET PO PRN (18:10)
[2022-11-05 19:01] LABS: GLUCOMETER DEV NAME(LOC) 6N.1
[2022-11-05 19:01] LABS: GLUCOMETER DEV NAME(LOC) 4E.2
[2022-11-05 19:41] VITALS: BP 115/58; PULSE 76; RESP 18; TEMP 98.4
[2022-11-05] MEDS: ATORVASTATIN CALCIUM 20 MG TABLET PO SCH (20:27)
[2022-11-06] MEDS: MEROPENEM 500 MG in SODIUM CHLORIDE 0.9% 50 ML IV SCH ×2 (01:43→14:06)
[2022-11-06 05:02] VITALS: BP 128/57; PULSE 77; RESP 18; TEMP 97.7
[2022-11-06] MEDS: HEPARIN SODIUM,PORCINE 5,000 UNITS/ML VIAL SQ SCH (07:55)
[2022-11-06] MEDS: BENZONATATE 100 MG CAPSULE PO SCH (07:55)
[2022-11-06] MEDS: FAMOTIDINE 20 MG TABLET PO SCH (07:56)
[2022-11-06] MEDS: ETHYL ALCOHOL 62% ANTISEPTIC NASAL SANITIZER 0.6 ML AMPUL NASAL SCH (07:56)
[2022-11-06] MEDS: FUROSEMIDE 20 MG TABLET PO SCH (07:56)
[2022-11-06] MEDS: METOPROLOL SUCCINATE 25 MG ER TABLET PO SCH (07:59)
[2022-11-06] MEDS: DOCUSATE SODIUM 100 MG CAPSULE PO SCH (08:02)
[2022-11-06 08:06] LABS: GLUCOMETER DEV NAME(LOC) 6N.1
[2022-11-06 08:26] LABS: CALCIUM, TOTAL 9.7 mg/dL (8.8-10.5); CREATININE 1.36 mg/dL (0.60-1.30); POTASSIUM 4.8 mmol/L (3.5-5.1)
[2022-11-06 08:43] VITALS: BP 117/52; PULSE 81; RESP 20; TEMP 98.1
[2022-11-06] MEDS ORDERED: GUAIFDM PO (13:38)
[2022-11-06] MEDS ORDERED: METO25XL PO (13:38)
[2022-11-06] MEDS ORDERED: FAMO20 PO (13:38)
[2022-11-06] MEDS ORDERED: ATOR20TA65 PO (13:38)
[2022-11-06] MEDS ORDERED: FURO20 PO (13:38)
[2022-11-07] MEDS ORDERED: VANCOMYCIN HCL 750 MG in DEXTROSE 5%-WATER 250 ML IV SCH (08:00)
== END 2022-11-06 14:55 | disposition home or self-care (01) | DRG 871 ==
LOC: EMS 13:47 → ICU 17:50 → 5S 10-19 21:20 → 6S 10-29 10:35
PROVIDERS: ADMIT Internal Medicine; ATTEND Internal Medicine
PROC: 5A09357 Assistance with Respiratory Ventilation, Less than 24 Consecutive Hours, Continuous Positive Airway Pressure (ICD-10-PCS; principal; 2022-10-17)
PROC: 05HC33Z Insertion of Infusion Device into Left Basilic Vein, Percutaneous Approach (ICD-10-PCS; 2022-10-25)
DX: A41.9 Sepsis, unspecified organism (principal); I50.23 Acute on chronic systolic (congestive) heart failure; J18.9 Pneumonia, unspecified organism; J96.01 Acute respiratory failure with hypoxia; I13.0 Hypertensive heart and chronic kidney disease with heart failure and stage 1 through stage 4 chronic kidney disease, or unspecified chronic kidney disease; N17.9 Acute kidney failure, unspecified; E87.1 Hypo-osmolality and hyponatremia; I42.9 Cardiomyopathy, unspecified; E87.20 Acidosis, unspecified; N13.6 Pyonephrosis; Z20.822 Contact with and (suspected) exposure to COVID-19; I48.0 Paroxysmal atrial fibrillation; Z66 Do not resuscitate; M19.90 Unspecified osteoarthritis, unspecified site; N18.30 Chronic kidney disease, stage 3 unspecified; K59.00 Constipation, unspecified; D64.9 Anemia, unspecified; E87.5 Hyperkalemia; F02.80 Dementia in other diseases classified elsewhere, unspecified severity, without behavioral disturbance, psychotic disturbance, mood disturbance, and anxiety; F32.A Depression, unspecified; K21.9 Gastro-esophageal reflux disease without esophagitis; G89.29 Other chronic pain; G30.9 Alzheimer's disease, unspecified; E11.22 Type 2 diabetes mellitus with diabetic chronic kidney disease; I49.3 Ventricular premature depolarization; F41.9 Anxiety disorder, unspecified; I08.0 Rheumatic disorders of both mitral and aortic valves; Z86.16 Personal history of COVID-19; Z95.810 Presence of automatic (implantable) cardiac defibrillator
CPT/HCPCS: 36569; 36600; 71045; 71250; 74176; 76705; 76937; 80048; 80053; 80061; 80202; 81001; 82550; 82805; 82962; 83605; 83735; 83880; 84100; 84132; 84145; 84484; 85025; 85610; 86738; 87040; 87070; 87081; 87086; 87186; 87205; 87449; 87804; 87899; 92610; 93005; 93306; 94640; 94644; 94660; 97110; 97163; 97530; 99285; G0378; J0131; J1644; J1940; J2185; J2543; J3370; J7030; J7040; J7050; J7060; Q9967; 36415-L1; 36415-TC; J7613